=== PATIENT | female | born 1960 | race Caucasian/White ===

== ENCOUNTER 2025-01-31 08:55 | Outpatient (RCR) | payer MEDICARE, OTHER, SELFPAY | END 2025-01-31 23:59 | disposition home or self-care (01) | LOC: RPT 08:55 | PROVIDERS: ATTENDING PHYSICIAN Psychiatry & Neurology Neurology | DX: G60.9 Hereditary and idiopathic neuropathy, unspecified (principal); R20.0 Anesthesia of skin; M62.81 Muscle weakness (generalized); Z73.6 Limitation of activities due to disability | CPT/HCPCS: 97110; 97112; 97162; 97530 ==

== ENCOUNTER 2025-02-21 13:04 | Outpatient (RCR) | payer MEDICARE, OTHER, SELFPAY | END 2025-02-21 23:59 | disposition home or self-care (01) | LOC: RPT 13:04 | PROVIDERS: ATTENDING PHYSICIAN Psychiatry & Neurology Neurology | DX: G60.9 Hereditary and idiopathic neuropathy, unspecified (principal); R20.0 Anesthesia of skin; R53.1 Weakness; Z73.6 Limitation of activities due to disability; M62.81 Muscle weakness (generalized); R26.2 Difficulty in walking, not elsewhere classified; M51.369 Other intervertebral disc degeneration, lumbar region without mention of lumbar back pain or lower extremity pain; M51.26 Other intervertebral disc displacement, lumbar region; R26.89 Other abnormalities of gait and mobility | CPT/HCPCS: 97110; 97112 ==